=== PATIENT | male | born 1985 | race Hispanic/Latino ===

== ENCOUNTER 2022-08-25 06:56 | Observation (INO) | payer OTHER, SELFPAY ==
[2022-08-25] MEDS ORDERED: Ondansetron PF 4 MG/2 ML Vial ONE ×2 (07:55→11:21)
[2022-08-25] MEDS ORDERED: Piperacillin/Tazobactam 4.5 GM VIAL ONE (07:55)
[2022-08-25] MEDS ORDERED: Morphine 4 MG/ML VIAL ONE ×2 (07:55→09:19)
[2022-08-25 08:42] LABS: Bilirubin Neg (Negative); Blood, Urine 25 (Negative); Clarity Clear (Clear); Glucose, Urine (Dipstick) Normal (Negative); Ketone, Urine 15 mg/dL (Negative); Leukocyte Negative (Negative); Nitrite Negative (Negative); Protein, Urine (Dipstick) 15 mg/dl (Neg-Trace); Specific Gravity, Urine 1.015 (1.005-1.030); Urobilinogen Normal mg/dL (Less than 2)
[2022-08-25 08:45] LABS: Bacteria/HPF None Seen HPF (None Seen); Squamous Epithelial 0-3 HPF (0-3); WBC/HPF 0-3 HPF (0-3)
[2022-08-25 08:54] LABS: #Eosinphils 0.1 10x3/uL (0.0-0.5); #Neutrophils 14.5 10x3/uL (1.5-8.4); %Basophils 0.2 % (0.0-2.0); %Eosinophils 0.5 % (0.0-6.0); %Lymphocytes 7.7 % (18.0-47.0); %Monocytes 5.8 % (0.0-10.0); %Neutrophils 85.4 % (40.0-75.0); Hemoglobin 14.7 g/dL (13.5-17.5); Mean Corpuscular Hemoglobin 30.3 pg (27.0-33.0); Mean Corpuscular Volume 84.1 fl (81.2-95.1); Mean Platelet Volume 9.7 fl (7.4-10.4); Platelet Count 178 10x3/uL (150-450); RBC Distribution Width 13.3 % (11.5-14.5); Red Blood Cell (RBC) Count 4.85 10x6/uL (4.32-5.72)
[2022-08-25] MEDS ORDERED: Fentanyl 100 MCG/2 ML VIAL ONE ×2 (09:02→11:37)
[2022-08-25] MEDS ORDERED: PROPOFOL 20 ML ONE ×2 (09:02→11:24)
[2022-08-25] MEDS ORDERED: Dexamethasone 20 MG/5 ML VIAL ONE (09:03)
[2022-08-25] MEDS ORDERED: Rocuronium Bromide 10 MG/ML (10ML VIAL) ONE (09:03)
[2022-08-25 09:08] LABS: ALT (SGPT) 47 U/L (8-55); AST (SGOT) 32 U/L (5-34); Albumin 4.6 g/dL (3.5-5.0); Alkaline Phosphatase 79 U/L (40-110); Anion Gap 16 mmol/L (10-20); BUN (Urea Nitrogen) 9 mg/dL (8.9-20.6); Bilirubin, Total 1.8 mg/dL (0.2-1.2); Calc. Creatinine Clearance 0 mL/min (70-130); Calcium 9.3 mg/dL (7.8-10.44); Carbon Dioxide 24 mmol/L (22-29); Chloride 100 mmol/L (98-107); Estimated GFR 102; Globulin 3.1 g/dL (2.4-3.5); Glucose 126 mg/dL (70-105); Lipase 18 U/L (8-78); Potassium 3.8 mmol/L (3.5-5.1); Protein, Total 7.7 g/dL (6.0-8.3); Sodium 136 mmol/L (136-145)
[2022-08-25] MEDS ORDERED: Iopamidol 300 61% 100 ML VIAL FS ONE (09:21)
[2022-08-25] MEDS ORDERED: Glycopyrrolate 0.2 MG/ML 5 ML SYRINGE ONE (09:30)
[2022-08-25] MEDS ORDERED: Bupivacaine PF 0.5% 30 ML VIAL ONE (09:53)
[2022-08-25] MEDS ORDERED: PHENYLEPHRINE-NS 100 MCG/ML 10 ML SYRINGE ONE ×3 (10:34→10:56)
[2022-08-25] MEDS ORDERED: Succinylcholine 200 MG/10 ml SYRINGE FS ONE (10:34)
[2022-08-25] MEDS ORDERED: SUGAMMADEX SODIUM 200 MG/2 ML VIAL ONE (10:59)
[2022-08-25] MEDS ORDERED: EPINEPHrine 1 MG/ML AMP ONE (11:18)
[2022-08-25] MEDS ORDERED: Ipratropium/Albuterol 3 ML NEB ONE (11:47)
[2022-08-25] MEDS ORDERED: HYDROcodone/Acetaminophen 10/325 mg Tablet PO PRN ×2 (11:59)
[2022-08-25] MEDS ORDERED: Acetaminophen 325 MG TAB PO PRN (11:59)
[2022-08-25] MEDS ORDERED: Morphine 4 MG/ML VIAL SLOW IVP PRN (11:59)
[2022-08-25] MEDS ORDERED: Promethazine HCl 25 MG/ML VIAL IM PRN (11:59)
[2022-08-25] MEDS ORDERED: Ondansetron PF 4 MG/2 ML Vial IVP PRN (11:59)
[2022-08-25] MEDS ORDERED: Ipratropium/Albuterol 3 ML NEB NEB PRN (11:59)
[2022-08-25] MEDS ORDERED: hydrALAZINE 20 MG/ML VIAL SLOW IVP PRN (11:59)
[2022-08-25] MEDS ORDERED: Morphine 2 MG/ML VIAL SLOW IVP PRN (11:59)
[2022-08-25] MEDS ORDERED: Piperacillin/Tazobactam 3.375 GM in Sodium Chloride 0.9% 100 ML IVPB SCH (12:00)
[2022-08-25] MEDS ORDERED: Ketorolac Tromethamine 30 MG/ML VIAL ONE (13:29)
[2022-08-25 15:31] VITALS: BMI 38.2
[2022-08-25] MEDS: D5 1/2 NS w/20 mEq KCL 1,000 ML IV SCH ×2 (15:44→19:55)
[2022-08-25] MEDS: Piperacillin/Tazobactam 3.375 GM in Sodium Chloride 0.9% 100 ML IVPB SCH (19:55)
[2022-08-25] MEDS: Ketorolac Tromethamine 30 MG/ML VIAL IVP SCH (19:55)
[2022-08-25] MEDS: Famotidine 20 MG TAB PO SCH (20:17)
[2022-08-26] MEDS: Ketorolac Tromethamine 30 MG/ML VIAL IVP SCH ×3 (00:56→14:54)
[2022-08-26] MEDS: Piperacillin/Tazobactam 3.375 GM in Sodium Chloride 0.9% 100 ML IVPB SCH ×2 (04:35→14:54)
[2022-08-26 04:42] LABS: #Monocytes 0.5 10x3/uL (0.0-1.1); #Neutrophils 9.5 10x3/uL (1.5-8.4); %Basophils 0.2 % (0.0-2.0); %Eosinophils 0.3 % (0.0-6.0); %Lymphocytes 11.2 % (18.0-47.0); %Monocytes 4.3 % (0.0-10.0); %Neutrophils 83.7 % (40.0-75.0); Mean Corpuscular HGB CONC 35.2 g/dL (32.0-36.0); Mean Corpuscular Hemoglobin 30.4 pg (27.0-33.0); Mean Corpuscular Volume 86.5 fl (81.2-95.1); Mean Platelet Volume 9.8 fl (7.4-10.4); Platelet Count 165 10x3/uL (150-450); RBC Distribution Width 13.8 % (11.5-14.5); White Blood Cell (WBC) Count 11.3 10x3/uL (3.5-10.5)
[2022-08-26] MEDS: D5 1/2 NS w/20 mEq KCL 1,000 ML IV SCH (08:22)
[2022-08-26] MEDS: Famotidine 20 MG TAB PO SCH (08:22)
[2022-08-26 12:06] VITALS: BP 128/68; TEMP 97.7
== END 2022-08-26 15:18 | disposition home or self-care (01) ==
LOC: CSHERS 06:56 → SUATTDRO 06:56 → CSHTELE 14:07
PROVIDERS: ADMIT Surgery; ATTEND Surgery
PROC: 0DTJ4ZZ Resection of Appendix, Percutaneous Endoscopic Approach (ICD-10-PCS; principal; 2022-08-25)
DX: K35.80 Unspecified acute appendicitis (principal); F32.A Depression, unspecified; E66.9 Obesity, unspecified; Z68.38 Body mass index [BMI] 38.0-38.9, adult
CPT/HCPCS: 36415; 74177; 81003; 81015; 83605; 83690; 85025; 88304; 96365; 96375; 96376; A4649; J0171; J1100; J1885; J2270; J2405; J2543; J2704; J3010; J3480; J3490; J7620; Q9967; S0020

== ENCOUNTER 2022-09-01 16:39 | Inpatient (IN) | payer SELFPAY ==
[~2022-09-01 16:39] MED LIST: Iopamidol 300 61% 100 ML VIAL FS ONE
[2022-09-01 17:45] LABS: #Basophils 0.1 10x3/uL (0.0-0.2); #Eosinphils 0.1 10x3/uL (0.0-0.5); #Monocytes 0.6 10x3/uL (0.0-1.1); #Neutrophils 11.9 10x3/uL (1.5-8.4); %Basophils 0.5 % (0.0-2.0); %Eosinophils 0.8 % (0.0-6.0); %Lymphocytes 13.6 % (18.0-47.0); %Monocytes 3.8 % (0.0-10.0); %Neutrophils 80.6 % (40.0-75.0); Hemoglobin 13.6 g/dL (13.5-17.5); Mean Corpuscular HGB CONC 35.5 g/dL (32.0-36.0); Mean Corpuscular Hemoglobin 30.2 pg (27.0-33.0); Mean Corpuscular Volume 84.9 fl (81.2-95.1); Mean Platelet Volume 9.1 fl (7.4-10.4); Platelet Count 335 10x3/uL (150-450); RBC Distribution Width 12.8 % (11.5-14.5); Red Blood Cell (RBC) Count 4.51 10x6/uL (4.32-5.72); White Blood Cell (WBC) Count 14.8 10x3/uL (3.5-10.5)
[2022-09-01 18:17] LABS: ALT (SGPT) 41 U/L (8-55); AST (SGOT) 27 U/L (5-34); Albumin 3.6 g/dL (3.5-5.0); Alkaline Phosphatase 104 U/L (40-110); Anion Gap 15 mmol/L (10-20); BUN (Urea Nitrogen) 17 mg/dL (8.9-20.6); Bilirubin, Total 0.7 mg/dL (0.2-1.2); Calc. Creatinine Clearance 0 mL/min (70-130); Calcium 9.3 mg/dL (7.8-10.44); Carbon Dioxide 22 mmol/L (22-29); Chloride 103 mmol/L (98-107); Estimated GFR 116; Globulin 4.4 g/dL (2.4-3.5); Glucose 181 mg/dL (70-105); Lipase 45 U/L (8-78); Potassium 3.8 mmol/L (3.5-5.1); Sodium 136 mmol/L (136-145)
[2022-09-01] MEDS ORDERED: Piperacillin/Tazobactam 4.5 GM VIAL ONE (19:21)
[2022-09-01] MEDS ORDERED: Ketorolac Tromethamine 30 MG/ML VIAL ONE (19:36)
[2022-09-01] MEDS ORDERED: Ondansetron PF 4 MG/2 ML Vial ONE (19:36)
[2022-09-01] MEDS ORDERED: Vancomycin 1 GM VIAL ONE (20:01)
[2022-09-01 20:13] LABS: SARS-CoV-2 NAA Rapid Test Not Detected (NotDetected)
[2022-09-01] MEDS ORDERED: Ondansetron PF 4 MG/2 ML Vial IVP PRN (20:43)
[2022-09-01] MEDS ORDERED: Calcium Carbonate 500 MG ChewTAB PO PRN (20:43)
[2022-09-01] MEDS ORDERED: Zolpidem Tartrate 5 MG TAB PO PRN (20:43)
[2022-09-01] MEDS ORDERED: HumaLOG 300 UNITS/3 ML VIAL SC PRN (20:43)
[2022-09-01] MEDS ORDERED: Acetaminophen 325 MG TAB PO PRN (20:43)
[2022-09-01] MEDS ORDERED: Dextrose 5% in Water 1,000 ML IV PRN (20:43)
[2022-09-01] MEDS ORDERED: HYDROcodone/Acetaminophen 5/325 mg Tablet PO PRN (20:43)
[2022-09-01] MEDS ORDERED: Senokot S 8.6-50 MG TAB PO PRN (20:43)
[2022-09-01] MEDS ORDERED: Dextrose 50% Abboject 50 ML SYRINGE SLOW IVP PRN (20:43)
[2022-09-01] MEDS ORDERED: Famotidine/PF 20 mg/2ml Vial ONE (21:34)
[2022-09-01] MEDS: Lactated Ringer's 1,000 ML IV SCH (21:40)
[2022-09-01] MEDS ORDERED: Famotidine/PF 20 mg/2ml Vial SLOW IVP SCH (22:15)
[2022-09-01] MEDS ORDERED: Piperacillin/Tazobactam 3.375 GM in Sodium Chloride 0.9% 100 ML IVPB SCH (23:59)
[2022-09-02] MEDS ORDERED: Piperacillin/Tazobactam 3.375 GM VIAL ONE (00:20)
[2022-09-02] MEDS: Piperacillin/Tazobactam 3.375 GM in Sodium Chloride 0.9% 100 ML IVPB SCH ×4 (00:48→20:00)
[2022-09-02] MEDS ORDERED: Piperacillin/Tazobactam 4.5 GM in Sodium Chloride 0.9% 100 ML IVPB SCH (04:00)
[2022-09-02] MEDS: Lactated Ringer's 1,000 ML IV SCH (05:08)
[2022-09-02 05:57] LABS: #Eosinphils 0.1 10x3/uL (0.0-0.5); #Monocytes 0.6 10x3/uL (0.0-1.1); #Neutrophils 10.8 10x3/uL (1.5-8.4); %Basophils 0.3 % (0.0-2.0); %Eosinophils 0.5 % (0.0-6.0); %Lymphocytes 13.2 % (18.0-47.0); %Monocytes 4.1 % (0.0-10.0); %Neutrophils 81.3 % (40.0-75.0); Hemoglobin 12.5 g/dL (13.5-17.5); Mean Corpuscular HGB CONC 35.3 g/dL (32.0-36.0); Mean Corpuscular Volume 85.1 fl (81.2-95.1); Mean Platelet Volume 8.6 fl (7.4-10.4); Platelet Count 291 10x3/uL (150-450); RBC Distribution Width 12.7 % (11.5-14.5); Red Blood Cell (RBC) Count 4.16 10x6/uL (4.32-5.72); White Blood Cell (WBC) Count 13.3 10x3/uL (3.5-10.5)
[2022-09-02 06:13] LABS: Anion Gap 12 mmol/L (10-20); BUN (Urea Nitrogen) 15 mg/dL (8.9-20.6); Calc. Creatinine Clearance 218 mL/min (70-130); Calcium 8.8 mg/dL (7.8-10.44); Carbon Dioxide 24 mmol/L (22-29); Chloride 107 mmol/L (98-107); Estimated GFR 119; Glucose 117 mg/dL (70-105); Potassium 4.2 mmol/L (3.5-5.1); Sodium 139 mmol/L (136-145)
[2022-09-02] MEDS ORDERED: Sodium Bicarbonate 2.5 MEQ/5 ML VIAL ONE (08:50)
[2022-09-02] MEDS ORDERED: Lidocaine 1% PF 5 ML VIAL ONE (08:50)
[2022-09-02] MEDS: Sertraline 25 MG TAB PO SCH (09:23)
[2022-09-02] MEDS: Famotidine/PF 20 mg/2ml Vial SLOW IVP SCH ×2 (09:23→20:55)
[2022-09-02] MEDS ORDERED: Midazolam HCl 5 mg/5 ml Vial ONE (09:43)
[2022-09-02] MEDS: VANCOMYCIN 1.75 GM/350 ML BAG 1.75 GM in Premix Bag 1 BAG IVPB SCH ×2 (09:43→20:59)
[2022-09-02] MEDS ORDERED: Fentanyl 100 MCG/2 ML VIAL ONE (09:43)
[2022-09-02 12:21] LABS: Body Fluid Source Abscess Fluid
[2022-09-02 12:22] LABS: BF Color White; Clarity Cloudy/Turbid (Clear)
[2022-09-02 12:32] LABS: Hemoglobin A1c 5.6 % (4.0-6.0)
[2022-09-03] MEDS: Piperacillin/Tazobactam 3.375 GM in Sodium Chloride 0.9% 100 ML IVPB SCH ×3 (02:53→20:27)
[2022-09-03 04:50] LABS: #Eosinphils 0.1 10x3/uL (0.0-0.5); #Monocytes 0.6 10x3/uL (0.0-1.1); #Neutrophils 13.2 10x3/uL (1.5-8.4); %Basophils 0.2 % (0.0-2.0); %Eosinophils 0.6 % (0.0-6.0); %Lymphocytes 12.6 % (18.0-47.0); %Monocytes 3.8 % (0.0-10.0); %Neutrophils 82.4 % (40.0-75.0); Hemoglobin 12.7 g/dL (13.5-17.5); Mean Corpuscular HGB CONC 35.2 g/dL (32.0-36.0); Mean Corpuscular Hemoglobin 29.9 pg (27.0-33.0); Mean Corpuscular Volume 84.9 fl (81.2-95.1); Mean Platelet Volume 8.4 fl (7.4-10.4); Platelet Count 328 10x3/uL (150-450); RBC Distribution Width 12.7 % (11.5-14.5); Red Blood Cell (RBC) Count 4.25 10x6/uL (4.32-5.72); White Blood Cell (WBC) Count 16.1 10x3/uL (3.5-10.5)
[2022-09-03 08:52] LABS: Vancomycin, Trough 7.1 ug/mL
[2022-09-03] MEDS: Famotidine/PF 20 mg/2ml Vial SLOW IVP SCH ×2 (09:40→20:28)
[2022-09-03] MEDS: Sertraline 25 MG TAB PO SCH (09:40)
[2022-09-03] MEDS: VANCOMYCIN 1.75 GM/350 ML BAG 1.75 GM in Premix Bag 1 BAG IVPB SCH (09:43)
[2022-09-03] MEDS ORDERED: VANCOMYCIN 2 GRAM/400 ML BAG 2 GM in Premix Bag 1 BAG IVPB SCH (09:45)
[2022-09-03] MEDS ORDERED: Sertraline 25 MG TAB PO SCH (12:15)
[2022-09-03] MEDS: VANCOMYCIN 2 GRAM/400 ML BAG 2 GM in Premix Bag 1 BAG IVPB SCH (20:31)
[2022-09-04] MEDS: Piperacillin/Tazobactam 3.375 GM in Sodium Chloride 0.9% 100 ML IVPB SCH ×3 (03:00→18:57)
[2022-09-04 04:50] LABS: #Eosinphils 0.1 10x3/uL (0.0-0.5); #Monocytes 0.8 10x3/uL (0.0-1.1); #Neutrophils 14.7 10x3/uL (1.5-8.4); %Basophils 0.2 % (0.0-2.0); %Eosinophils 0.7 % (0.0-6.0); %Lymphocytes 9.2 % (18.0-47.0); %Monocytes 4.3 % (0.0-10.0); %Neutrophils 85.1 % (40.0-75.0); Hemoglobin 13.1 g/dL (13.5-17.5); Mean Corpuscular HGB CONC 34.7 g/dL (32.0-36.0); Mean Corpuscular Hemoglobin 29.6 pg (27.0-33.0); Mean Corpuscular Volume 85.3 fl (81.2-95.1); Mean Platelet Volume 8.5 fl (7.4-10.4); Platelet Count 325 10x3/uL (150-450); RBC Distribution Width 12.7 % (11.5-14.5); Red Blood Cell (RBC) Count 4.43 10x6/uL (4.32-5.72); White Blood Cell (WBC) Count 17.3 10x3/uL (3.5-10.5)
[2022-09-04] MEDS: Morphine 2 MG/ML VIAL SLOW IVP PRN ×2 (05:39→21:36)
[2022-09-04] MEDS: VANCOMYCIN 2 GRAM/400 ML BAG 2 GM in Premix Bag 1 BAG IVPB SCH ×3 (08:53→21:25)
[2022-09-04] MEDS: Famotidine/PF 20 mg/2ml Vial SLOW IVP SCH ×2 (08:53→21:24)
[2022-09-04] MEDS: Sertraline 100 MG TAB PO SCH (08:54)
[2022-09-04] MEDS ORDERED: Fluconazole In NaCl,Iso-Osm 400 MG in Premix Bag 1 BAG IVPB SCH (09:00)
[2022-09-04] MEDS: Fluconazole In NaCl,Iso-Osm 400 MG in Premix Bag 1 BAG IVPB SCH (12:20)
[2022-09-04 15:37] VITALS: BMI 38.0
[2022-09-04 19:54] LABS: Vancomycin, Trough 8.2 ug/mL
[2022-09-04] MEDS: VANCOMYCIN 1.75 GM/350 ML BAG 1.75 GM in Premix Bag 1 BAG IVPB SCH (21:35)
[2022-09-05] MEDS: Piperacillin/Tazobactam 3.375 GM in Sodium Chloride 0.9% 100 ML IVPB SCH ×2 (03:20→11:25)
[2022-09-05 06:08] LABS: #Eosinphils 0.1 10x3/uL (0.0-0.5); #Monocytes 0.7 10x3/uL (0.0-1.1); #Neutrophils 11.2 10x3/uL (1.5-8.4); %Basophils 0.2 % (0.0-2.0); %Eosinophils 0.8 % (0.0-6.0); %Lymphocytes 11.8 % (18.0-47.0); %Monocytes 4.8 % (0.0-10.0); %Neutrophils 81.7 % (40.0-75.0); Hemoglobin 13.1 g/dL (13.5-17.5); Mean Corpuscular HGB CONC 34.9 g/dL (32.0-36.0); Mean Corpuscular Hemoglobin 29.8 pg (27.0-33.0); Mean Corpuscular Volume 85.4 fl (81.2-95.1); Mean Platelet Volume 8.3 fl (7.4-10.4); Platelet Count 345 10x3/uL (150-450); RBC Distribution Width 12.5 % (11.5-14.5); Red Blood Cell (RBC) Count 4.39 10x6/uL (4.32-5.72); White Blood Cell (WBC) Count 13.7 10x3/uL (3.5-10.5)
[2022-09-05] MEDS: VANCOMYCIN 1.75 GM/350 ML BAG 1.75 GM in Premix Bag 1 BAG IVPB SCH ×2 (06:28→15:20)
[2022-09-05 06:39] LABS: Anion Gap 12 mmol/L (10-20); BUN (Urea Nitrogen) 14 mg/dL (8.9-20.6); Calc. Creatinine Clearance 214 mL/min (70-130); Carbon Dioxide 24 mmol/L (22-29); Chloride 105 mmol/L (98-107); Estimated GFR 118; Glucose 120 mg/dL (70-105); Potassium 4.3 mmol/L (3.5-5.1); Sodium 137 mmol/L (136-145)
[2022-09-05] MEDS: Sertraline 100 MG TAB PO SCH (08:13)
[2022-09-05] MEDS: Famotidine/PF 20 mg/2ml Vial SLOW IVP SCH (08:13)
[2022-09-05] MEDS: Fluconazole In NaCl,Iso-Osm 400 MG in Premix Bag 1 BAG IVPB SCH (12:48)
[2022-09-05 12:49] VITALS: BP 119/56; TEMP 98.1
== END 2022-09-05 16:31 | disposition home or self-care (01) | DRG 862 ==
LOC: CSHERS 16:39 → CSHERHOLD 21:28 → CSHTELE 09-02 11:27
PROVIDERS: ADMIT Student in an Organized Health Care Education/Training Program; ATTEND Family Medicine
PROC: 0W9G30Z Drainage of Peritoneal Cavity with Drainage Device, Percutaneous Approach (ICD-10-PCS; principal; 2022-09-02)
DX: T81.43XA Infection following a procedure, organ and space surgical site, initial encounter (principal); A41.9 Sepsis, unspecified organism; K65.1 Peritoneal abscess; R65.20 Severe sepsis without septic shock; J98.11 Atelectasis; J95.89 Other postprocedural complications and disorders of respiratory system, not elsewhere classified; E66.01 Morbid (severe) obesity due to excess calories; F32.A Depression, unspecified; Z20.822 Contact with and (suspected) exposure to COVID-19; R73.9 Hyperglycemia, unspecified; Y83.8 Other surgical procedures as the cause of abnormal reaction of the patient, or of later complication, without mention of misadventure at the time of the procedure; Z90.49 Acquired absence of other specified parts of digestive tract; Z68.38 Body mass index [BMI] 38.0-38.9, adult
CPT/HCPCS: 36415; 36416; 49020; 74177; 80048; 80053; 80202; 82565; 83036; 83605; 83690; 84520; 85025; 87040; 87070; 87076; 87077; 87186; 87205; 89051; 96365; 96366; 96367; 96375; C1729; J1450; J1650; J1815; J1885; J2250; J2272; J2405; J2543; J3010; J3370; J3490; J7120; Q9967; S0028; U0002

== ENCOUNTER 2023-09-04 13:09 | Emergency (ER) | payer OTHER ==
[2023-09-04 14:56] LABS: #Eosinphils 0.1 10x3/uL (0.0-0.5); #Monocytes 0.5 10x3/uL (0.0-1.1); #Neutrophils 4.7 10x3/uL (1.5-8.4); %Basophils 0.2 % (0.0-2.0); %Eosinophils 0.7 % (0.0-6.0); %Lymphocytes 37.8 % (18.0-47.0); %Monocytes 5.8 % (0.0-10.0); %Neutrophils 55.3 % (40.0-75.0); Hematocrit 42.5 % (38.8-50.0); Hemoglobin 15.4 g/dL (13.5-17.5); Mean Corpuscular HGB CONC 36.2 g/dL (32.0-36.0); Mean Corpuscular Hemoglobin 30.4 pg (27.0-33.0); Platelet Count 182 10x3/uL (150-450); RBC Distribution Width 12.5 % (11.5-14.5); Red Blood Cell (RBC) Count 5.06 10x6/uL (4.32-5.72); White Blood Cell (WBC) Count 8.5 10x3/uL (3.5-10.5)
[2023-09-04 15:12] LABS: ALT (SGPT) 52 U/L (8-55); AST (SGOT) 38 U/L (5-34); Albumin 4.5 g/dL (3.5-5.0); Alkaline Phosphatase 97 U/L (40-110); Anion Gap 14 mmol/L (10-20); BUN (Urea Nitrogen) 17 mg/dL (8.9-20.6); Bilirubin, Total 0.7 mg/dL (0.2-1.2); Calc. Creatinine Clearance 0 mL/min (70-130); Calcium 9.2 mg/dL (7.8-10.44); Carbon Dioxide 23 mmol/L (22-29); Chloride 104 mmol/L (98-107); Estimated GFR 116; Globulin 3.9 g/dL (2.4-3.5); Glucose 95 mg/dL (70-105); Magnesium 1.9 mg/dL (1.6-2.6); Potassium 3.5 mmol/L (3.5-5.1); Protein, Total 8.4 g/dL (6.0-8.3); Sodium 137 mmol/L (136-145)
[2023-09-04 15:18] LABS: Troponin I Less than 0.010 ng/mL (< 0.028)
== END 2023-09-04 16:18 | disposition home or self-care (01) ==
LOC: CSHERS 13:09
DX: R07.89 Other chest pain (principal)
CPT/HCPCS: 36415; 71045; 80053; 83690; 83735; 84484; 85025; 93005

== ENCOUNTER 2023-10-28 08:40 | Emergency (ER) | payer OTHER ==
[2023-10-28 09:24] LABS: #Monocytes 0.7 10x3/uL (0.0-1.1); #Neutrophils 8.6 10x3/uL (1.5-8.4); %Basophils 0.4 % (0.0-2.0); %Eosinophils 0.4 % (0.0-6.0); %Lymphocytes 11.8 % (18.0-47.0); %Monocytes 6.3 % (0.0-10.0); %Neutrophils 80.9 % (40.0-75.0); Hematocrit 43.1 % (38.8-50.0); Hemoglobin 14.9 g/dL (13.5-17.5); Mean Corpuscular HGB CONC 34.6 g/dL (32.0-36.0); Mean Corpuscular Hemoglobin 31.3 pg (27.0-33.0); Mean Corpuscular Volume 90.5 fl (81.2-95.1); Platelet Count 323 10x3/uL (150-450); RBC Distribution Width 14.2 % (11.5-14.5); Red Blood Cell (RBC) Count 4.76 10x6/uL (4.32-5.72); White Blood Cell (WBC) Count 10.6 10x3/uL (3.5-10.5)
[2023-10-28 09:46] LABS: ALT (SGPT) 31 U/L (8-55); AST (SGOT) 37 U/L (5-34); Albumin 4.5 g/dL (3.5-5.0); Alkaline Phosphatase 83 U/L (40-110); Anion Gap 17 mmol/L (10-20); BUN (Urea Nitrogen) 29 mg/dL (8.9-20.6); Bilirubin, Total 0.9 mg/dL (0.2-1.2); Calc. Creatinine Clearance 0 mL/min (70-130); Calcium 10.7 mg/dL (7.8-10.44); Carbon Dioxide 26 mmol/L (22-29); Chloride 103 mmol/L (98-107); Estimated GFR 71; Globulin 3.3 g/dL (2.4-3.5); Glucose 123 mg/dL (70-105); Potassium 3.8 mmol/L (3.5-5.1); Protein, Total 7.8 g/dL (6.0-8.3); Sodium 142 mmol/L (136-145)
[2023-10-28 10:08] LABS: Bilirubin Neg (Negative); Blood, Urine Negative (Negative); Clarity Clear (Clear); Glucose, Urine (Dipstick) 50 mg/dL (Negative); Ketone, Urine Negative (Negative); Leukocyte Negative (Negative); Nitrite Negative (Negative); Protein, Urine (Dipstick) 15 mg/dl (Neg-Trace); Specific Gravity, Urine 1.015 (1.005-1.030); Urobilinogen Normal mg/dL (Less than 2)
[2023-10-28 10:51] LABS: CAUTI Indications for Culture Pelvic or flank pain; RBC/HPF 0-3 HPF (0-3); Squamous Epithelial 0-3 HPF (0-3)
[2023-10-28 10:52] LABS: Bacteria/HPF Rare-Few HPF (None Seen)
[2023-10-28 10:53] LABS: Urine Culture Reflex No No
== END 2023-10-28 11:06 | disposition home or self-care (01) ==
LOC: CSHERS 08:40
DX: R73.9 Hyperglycemia, unspecified (principal); R30.0 Dysuria
CPT/HCPCS: 80053; 81001; 85025; 96360

== ENCOUNTER 2024-02-06 10:08 | Emergency (ER) | payer OTHER ==
[2024-02-06] MEDS ORDERED: Ketorolac Tromethamine 30 MG (1 mL) VIAL ONE (10:36)
[2024-02-06] MEDS ORDERED: Bacitracin 1 PK ONE (10:54)
== END 2024-02-06 11:08 | disposition home or self-care (01) ==
LOC: CSHERS 10:08
DX: S92.402A Displaced unspecified fracture of left great toe, initial encounter for closed fracture (principal); S91.202A Unspecified open wound of left great toe with damage to nail, initial encounter; W24.0XXA Contact with lifting devices, not elsewhere classified, initial encounter
CPT/HCPCS: 96372; J1885